=== PATIENT | male | born 1965 | race Caucasian/White ===

== ENCOUNTER 2021-06-02 14:48 | Emergency (ER) | payer SELFPAY ==
[~2021-06-02] VITALS: Ht 175.3 cm; Wt 8.0 kg
[2021-06-02 14:59] VITALS: BP 151/94
== END 2021-06-02 15:30 | disposition left against medical advice (07) ==
LOC: ER 15:17
DX: R42 Dizziness and giddiness (principal)
CPT/HCPCS: 99283